=== PATIENT | male | born 2000 | race Caucasian/White ===

== ENCOUNTER → 2024-05-27 | Outpatient (CLI) | payer OTHER | LOC: M PLAIMG 10:48 | PROVIDERS: ATTEND Physician Assistant | DX: M25.542 Pain in joints of left hand (principal) ==

== ENCOUNTER → 2024-06-17 | Outpatient (CLI) | payer OTHER | LOC: M SOG 08:27 | PROVIDERS: ATTEND Physician Assistant | DX: S62.645A Nondisplaced fracture of proximal phalanx of left ring finger, initial encounter for closed fracture (principal); S62.647A Nondisplaced fracture of proximal phalanx of left little finger, initial encounter for closed fracture; X58.XXXA Exposure to other specified factors, initial encounter; Y92.9 Unspecified place or not applicable; Y93.9 Activity, unspecified; Y99.8 Other external cause status ==

== ENCOUNTER → 2024-07-18 | Outpatient (CLI) | payer OTHER | LOC: M SOG 08:56 | PROVIDERS: ATTEND Physician Assistant | DX: S62.645A Nondisplaced fracture of proximal phalanx of left ring finger, initial encounter for closed fracture (principal); S62.647A Nondisplaced fracture of proximal phalanx of left little finger, initial encounter for closed fracture; Y93.9 Activity, unspecified; Y92.9 Unspecified place or not applicable ==

== ENCOUNTER → 2024-09-02 | Outpatient (CLI) | payer OTHER | LOC: M CARPUL 10:07 | PROVIDERS: ATTEND Physician Assistant | DX: J39.9 Disease of upper respiratory tract, unspecified (principal) ==

== ENCOUNTER 2025-08-12 13:49 | Emergency (ER) | payer OTHER ==
[~2025-08-12] VITALS: Ht 175.3 cm; Wt 87.3 kg
[2025-08-12 13:51] VITALS: TEMP 97.9
[2025-08-12] MEDS ORDERED: VALA500T5 PO (14:06)
[2025-08-12 16:32] VITALS: BP 130/63; O2SAT 100
== END 2025-08-12 16:55 | disposition left against medical advice (07) ==
LOC: M ED 13:49
DX: Z53.21 Procedure and treatment not carried out due to patient leaving prior to being seen by health care provider (principal)